=== PATIENT | male | born 1950 | race Caucasian/White ===

== ENCOUNTER 2018-11-27 10:38 | Outpatient (CLI) | payer MEDICARE, OTHER ==
[~2018-11-27] VITALS: Ht 175.3 cm; Wt 102.0 kg
[2018-11-27] VITALS (7 sets, daily range): BP systolic 116–136; BP diastolic 61–79; PULSE 58–77; TEMP 97.6
[~2018-11-27 10:38] MED LIST: ALDACTONE 25MG25 M1 PO; ASACOL HD800 MG PO; CARVEDILOL PO; CLEOCIN HC150 MG/CAP PO; CO Q-1010 M1 PO; COREG 25MG25 MG/TAB PO; COREG 3.123.125 MG/T PO; K-DUR 10 MEQ T10 MEQ PO; LASIX 40MG TABL40 MG PO; LASIX 80MG TABL80 MG PO; LEVOXYL0.025 MG PO; NORVASC 10MG10 MG PO; NORVASC 5MG5 MG/TAB PO; OMEGA-31 SGL PO; PEN-VEE K500 MG PO; PHOS LO PO; PREDNISONE10 MG PO; PRILOSEC 20MG20 MG PO; PRINIVIL5 MG PO; PROBIOTIC-MAJOR PO; PROBIOTIC-SUNMARK PO; QUESTRAN4 GM/9 GM PO; RENA-VITE1 TAB PO; SODIUM BICARBON1 POW PO; SUPER OMEGA; VITAMIN D32000 IU PO; VITAMIN D5000 IU PO; ZAROXOLYN 2.52.5 MG PO; ZOFRAN 4MG T4 MG/TAB PO
[2018-11-27] MEDS ORDERED: CALCITRIOL PO (10:55)
[2018-11-27] MEDS ORDERED: ULORIC40 MG PO (10:58)
[2018-11-27] MEDS ORDERED: TUMS500 MG PO (11:02)
[2018-11-27] MEDS ORDERED: SOLIRIS10 MG/ML IV (11:03)
--- NOTE | 2018-11-27 15:11 | NUR ---
PLEASE SEE MERGE FOR ALL MEDICATION ADMINISTRATION TIMES, SEDATION ASSESSMENT DATA.
== END 2018-11-27 17:59 | disposition home or self-care (01) ==
LOC: COL.CAR 10:38
DX: T82.858A Stenosis of other vascular prosthetic devices, implants and grafts, initial encounter (principal); Z90.49 Acquired absence of other specified parts of digestive tract; N18.6 End stage renal disease
CPT/HCPCS: J1644; J2250; J3010; Q9967